=== PATIENT | male | born 1955 | race Caucasian/White ===

== ENCOUNTER → 2016-07-23 | Outpatient (CLI) | payer OTHER ==
[~2016-07-23] MED LIST: ASA325 MG PO; CYTOMEL25 MCG PO; LEVOTHYROXINE175 MCG PO; MIRALAX PACKET17 GM PO; NORVASC DPS10 MG PO; OXY IR DPS5 MG PO; PROPRANOLOL HCL40 MG PO; PROTONIX40 MG PO; SAW PALMETTO80 MG PO; SENOKOT S1 TAB PO; TYLENOL DPS325 MG PO; ULTRAM DPS50 MG PO
== END | disposition home or self-care (01) ==
LOC: PTH.S 10:57
DX: Z01.818 Encounter for other preprocedural examination (principal); I10 Essential (primary) hypertension

== ENCOUNTER 2016-08-07 06:01 | Inpatient (IN) | payer OTHER ==
[~2016-08-07] VITALS: Ht 170.2 cm; Wt 88.0 kg
--- NOTE | ~2016-08-07 | OR ---
ADMIT: 08/07/2016 RM/LOC: 526 [facility] MR#: [id number] [facility]#: [id number] [address] [address] MARIZA MART [address] [place] [id number] Operative/Delivery Room Report SEX: M AGE: 61 : 1955 SURGERY DATE: 08/07/2016 SURGEON: Antelmo Victor MD PREOPERATIVE DIAGNOSIS: Left knee valgus degenerative joint disease. POSTOPERATIVE DIAGNOSIS: Left knee valgus degenerative joint disease. PROCEDURE: Left total knee arthroplasty using intraarticular block. COMPLICATIONS: None. BLOOD LOSS: 100 mL. TOURNIQUET TIME: 49 minutes. COMPONENTS: 1. Size 7 Attune femoral component. 2. Size 7 Attune tibial component. 3. A 7 mm posterior stabilized insert. 4. A 38 mm oval patellar button. 5. Nely Speed Set cement. DESCRIPTION OF THE PROCEDURE: The patient was taken to the Operating Room and the correct extremity was identified. The patient received a spinal anesthetic. The left lower extremity was prepped and draped in a standard fashion. The leg was exsanguinated and tourniquet inflated. An anterior incision was made and dissection was carried through the subcutaneous tissue. A medial parapatellar arthrotomy was performed. The patella subluxed laterally. The infrapatellar fat pad was partially excised for exposure. At that point, the distal femur was opened up with a drill. We cut 11 mm off the distal femur in 5 degrees of valgus using an intramedullary guide. We then cut the tibia perpendicular to its long axis taking it flush with the affected side with an extramedullary guide. We then sized the femur to a size 7 and pinned this in appropriate external rotation aligning it with the epicondylar axis. We then made anterior posterior chamfer cuts with the 4-in-1 cutting block. We opened up the joint space and removed the remaining posterior osteophytes, meniscus, and PCL ligament. We made our box cut centralizing the femoral component. The tibia was subluxed anteriorly, fit for a size 7 tibial tray, punched and drilled in appropriate external rotation. We then removed the remaining tibial osteophytes. We then cut the patella perpendicular to its long axis taking it flush with the lateral facet and fit it for a 38 mm oval patellar button restoring patellar height. We then put in trial components with a 7 mm insert. At that point, we had full extension, full flexion, patella tracked centrally and no lateral release was required. The ADMIT: 08/07/2016 RM/LOC: 526 [facility] MR#: [id number] [facility] [address] [address] MARIZA MART [address] [place] [address] Operative/Delivery Room Report SEX: M AGE: 61 : 1955 knee was also stable to varus and valgus stress testing. All trial components were removed and all the bony surfaces were Waterpik'd clean. We then cemented the tibia, femur, and patella in a standard fashion, put in the trial 7 mm insert and held the knee in extension. Once the cement was hard, we deflated the tourniquet, obtained hemostasis, irrigated out the wound thoroughly, removed the trial insert and put in the real insert. The knee was again found to be stable with full range of motion. No Hemovac drain was used. At that point, the extensor mechanism was closed with an interrupted 0- Vicryl suture with the knee in flexion. The subcutaneous tissue was closed 2-0 Vicryl and zarina were placed in the skin. Sterile dressings were then applied. The patient was taken to the Recovery Room in stable condition with no complications. Antelmo Victor MD/ keya JOB #: [id number] CC: Antelmo Victor, Attending Physician Jai Walter, Family Physician
[2016-08-10] MEDS ORDERED: LEVOTHYROXINE175 MCG PO (15:21)
[2016-08-10] MEDS ORDERED: PROPRANOLOL HCL40 MG PO (15:21)
[2016-08-10] MEDS ORDERED: NORVASC DPS10 MG PO (15:21)
[2016-08-10] MEDS ORDERED: ASA325 MG PO (15:22)
[2016-08-10] MEDS ORDERED: SAW PALMETTO80 MG PO (15:22)
[2016-08-10] MEDS ORDERED: CYTOMEL25 MCG PO (15:22)
[2016-08-10] MEDS ORDERED: PROTONIX40 MG PO (15:23)
[2016-08-10] MEDS ORDERED: MIRALAX PACKET17 GM PO (15:23)
[2016-08-10] MEDS ORDERED: SENOKOT S1 TAB PO (15:23)
[2016-08-10] MEDS ORDERED: TYLENOL DPS325 MG PO (15:23)
[2016-08-10] MEDS ORDERED: ULTRAM DPS50 MG PO (15:24)
[2016-08-10] MEDS ORDERED: OXY IR DPS5 MG PO (15:24)
--- NOTE | 2016-08-17 07:45 | HP ---
ADMIT: 08/07/2016 RM/LOC: [facility] MR#: [id number] [address] [address] MARIZA MART [address] [place] [id number] Pre-OP History and Physical SEX: M AGE: 61 : 1955 DATE OF SERVICE: HISTORY OF PRESENT ILLNESS: The patient has been admitted. He has had a longstanding history of left knee pain. Left knee pain limits his activity. He has had injections. No long-term improvement. Now being admitted for left total knee arthroplasty. PAST MEDICAL HISTORY: 1. Hypertension. 2. Hypothyroidism. MEDICATIONS: 1. Inderal. 2. Tylenol. 3. Ibuprofen. 4. Promethazine. 5. Exforge. 6. Synthroid. 7. Lasix. ALLERGIES: PENICILLIN. SOCIAL HISTORY: Denies tobacco or alcohol use. REVIEW OF SYSTEMS: Negative. PHYSICAL EXAMINATION: GENERAL: A healthy-appearing male, in no acute distress. EXTREMITIES: Walks with antalgic gait on the left lower extremity. He has a slight valgus alignment to the left knee. Range of motion 5 to 110 degrees. No instability. Leg is neurovascularly intact. DIAGNOSTIC DATA: X-rays, AP, lateral, PA flexion view shows advanced left knee arthritis, slight valgus deformity. IMPRESSION: Advanced left knee degenerative joint disease. PLAN: We talked about different options, failed conservative care. Plan on doing a left Attune total knee arthroplasty. He is aware of the risks, benefits, and options, and agreed to proceed. He has been seen and cleared from a medical standpoint. Antelmo Victor MD/ keya JOB #: [id number] CC: Antelmo Victor, Attending Physician ADMIT: 08/07/2016 RM/LOC: [facility] MR#: [id number] [address] [address] MARIZA MART [address] [place] [address] Pre-OP History and Physical SEX: M AGE: 61 : 1955 Jai Walter Family Physician
--- NOTE | 2016-08-27 07:05 | DS ---
ADMIT: 08/07/2016 RM/LOC: 6 [facility] MR#: [id number] [address] [address] SAHIL MART [address] [place] [id number] General Discharge Summary SEX: M AGE: 61 : 1955 ADMISSION DATE: 08/07/2016 DISCHARGE DATE: 08/09/2016 REASON FOR ADMISSION: Elective left total knee arthroplasty failing conservative management for osteoarthritis. PREOPERATIVE DIAGNOSIS: Left knee valgus degenerative joint disease. POSTOPERATIVE DIAGNOSIS: Left knee valgus degenerative joint disease. PROCEDURE PERFORMED: Left total knee arthroplasty. COMPLICATIONS: None. BLOOD LOSS: 100 mL. SURGEON: Antelmo Victor MD. CALL CENTER RECEPTIONIST: RAJESH Burdick ACTIVE MEDICAL PROBLEMS: Osteoarthritis, hypertension, and hypothyroidism. HOSPITAL COURSE: Sahil was admitted on 08/07/2016 for elective left total knee arthroplasty, was completed successfully by Dr. Victor. There were no complications. Postoperatively, he did well with pain control with use of intraoperative pain injection cocktail as well as oral analgesics. He participated well with physical therapy. Postoperative day #1, he did have saturation of his postoperative dressing had some bleeding through that was changed, compression was applied, and the bleeding stopped. He did as anticipated have a slight drop in his hemoglobin only down to 13.2, otherwise his hospital course was uneventful and he was stable and ready for discharge on postoperative day #2, with plans for outpatient therapy. DISCHARGE MEDICATIONS: 1. Aspirin 325 mg daily x30 days. 2. Cytomel 25 mcg b.i.d. 3. Inderal 40 mg b.i.d. ADMIT: 08/07/2016 RM/LOC: 6 [facility] MR#: [id number] [address] [address] SAHIL MART [address] [place] [address] General Discharge Summary SEX: M AGE: 61 : 1955 4. MiraLAX p.r.n. 5. Norvasc 5 mg daily. 6. Protonix 40 mg daily while on aspirin. 7. Senokot b.i.d. p.r.n. 8. Synthroid 0.175 mg daily. 9. Tylenol 650 mg q.4 p.r.n. 10.Ultram 50 mg 1 to 2 q.6 x3 days then p.r.n. 11.OxyIR 5 mg 1 to 2 q.4 p.r.n. breakthrough pain. DISCHARGE INSTRUCTIONS: Sahil will undergo outpatient therapy per total knee arthroplasty protocol. Follow up in the orthopedic office in 2 weeks for wound check, 6 weeks with x-rays. Follow up with primary care as directed. Wiley Miller PA-C / Antelmo Victor MD / keya JOB #: [id number] CC: Antelmo Victor MD, Attending Physician Jai Walter MD, Family Physician
== END 2016-08-09 14:16 | disposition home or self-care (01) | DRG 470 ==
LOC: 5MS 06:01 → WOR 06:01 → 5MS 10:15
PROVIDERS: ADMIT Orthopaedic Surgery
PROC: 0SRD0J9 Replacement of Left Knee Joint with Synthetic Substitute, Cemented, Open Approach (ICD-10-PCS; principal; 2016-08-07)
DX: M17.12 Unilateral primary osteoarthritis, left knee (principal); D69.6 Thrombocytopenia, unspecified; I10 Essential (primary) hypertension; E03.9 Hypothyroidism, unspecified; L40.50 Arthropathic psoriasis, unspecified; Z87.891 Personal history of nicotine dependence